=== PATIENT | female | born 1960 | race Caucasian/White ===

== ENCOUNTER → 2023-06-23 | Outpatient (CLI) | payer MEDICARE, OTHER, SELFPAY ==
--- NOTE | 2023-06-23 13:02 | CDU_ITS ---
Reason For Study: Amaurosis fugax Rt. Velocities/BP Lt. Velocities/BP Prox CCA 84.4/24.8 cm/sec. Prox CCA 66.3/21.2 cm/sec. Mid CCA 63.6/20.1 cm/sec. Mid CCA 77.3/24.5 cm/sec. Dist CCA 62.6/22 cm/sec. Dist CCA 69.6/25.6 cm/sec. Prox ICA 75.1/22.3 cm/sec. Prox ICA 57.5/21.2 cm/sec. Mid ICA 54.5/21.6 cm/sec. Mid ICA 61.9/26.7 cm/sec. Dist ICA 58.7/26.2 cm/sec. Dist ICA 70.7/32.2 cm/sec. Rt. ICA/CCA = 1.18. Lt. ICA/CCA = 1.02. Prox ECA 81.4/18.2 cm/sec. Prox ECA 82.8/16.8 cm/sec. Rt. Vert. 38.8/12.4 cm/sec. Lt. Vert. 42.1/16.8 cm/sec. Right Extracranial There is intimal thickening but no significant atherosclerotic plaque noted in the right common carotid artery. There is intimal thickening but no significant atherosclerotic plaque noted in the right internal carotid artery. There is intimal thickening but no significant atherosclerotic plaque noted in the right external carotid artery. Antegrade flow is noted in the right vertebral artery. Left Extracranial There is intimal thickening but no significant atherosclerotic plaque noted in the left common carotid artery. There is homogeneous, smooth atherosclerotic plaque noted in the left internal carotid artery. There is intimal thickening but no significant atherosclerotic plaque noted in the left external carotid artery. Procedure This is a Carotid Duplex examination using B-mode, color flow and specral Doppler. Carotid Duplex [id number]. Exam performed in department. VL/Carotid Duplex Ultrasound Interpretation Summary Intimal thickening at the proximal right internal carotid artery with less than 50% stenosis Less than 50% stenosis right external carotid artery Minimal smooth plaque at the proximal left internal carotid artery with less th an 50% stenosis Less than 50% stenosis left external carotid artery Patent antegrade vertebral arteries bilaterally Ordering Physician: Tony Lopez Referring Physician: Renata Ma Performed By: Allie Siu RVT
== END | disposition home or self-care (01) ==
PROVIDERS: PCP Physician Assistant; Referring Provider Ophthalmology; Visit Provider Ophthalmology
DX: G45.3 Amaurosis fugax (principal)
CPT/HCPCS: 93880